=== PATIENT | female | born 1980 | race Caucasian/White ===

== ENCOUNTER → 2018-08-27 | Outpatient (CLI) | payer BC ==
--- NOTE | 2018-08-27 21:42 | Diagnostic Imaging Report ---
INDICATION: Palpable lump at the 2-3 o'clock location of the left breast. The patient denies having a palpable abnormality and said this was felt by the patient's physician. COMPARISON: No prior studies are available for comparison. EXAMINATION: 2D and 3D bilateral diagnostic mammography was performed with CAD. The current study was also evaluated with a Computer Aided Detection (CAD) system. FINDINGS: Both breasts are heterogeneously dense, limiting the sensitivity of mammography. No mass or malignant appearing microcalcifications are seen. Axillae are unremarkable. IMPRESSION: No mammographic features suspicious for malignancy are identified. Even so, sonographic interrogation in the 2-3 o'clock location of the left breast is recommended and will be performed today. ACR BI-RADS Category 0: Incomplete. (Needs additional imaging evaluation). Result letter will be mailed to the patient. Note: At least 10% of breast cancer is not imaged by mammography. Dictated by: Dictated on workstation # [id number]
--- NOTE | 2018-08-27 21:54 | Diagnostic Imaging Report ---
INDICATION: Lump felt by the patient's doctor at the 2-3 o'clock location of the left breast. COMPARISON: Diagnostic mammogram earlier the same day. EXAMINATION: Interrogation of the area of lump at the 2-3 o'clock location in the left breast was performed. FINDINGS: No sonographic abnormality is seen. No solid or cystic mass is detected. IMPRESSION: No sonographic abnormality is seen. Continued close clinical and self breast exam is recommended to confirm stability of the palpable abnormality. ACR BI-RADS Category 1: Negative. Result letter will be mailed to the patient. Note: At least 10% of breast cancer is not imaged by mammography. Dictated by: Dictated on workstation # [id number]
== END ==
LOC: RAD 13:07
PROVIDERS: ATTEND Nurse Practitioner Family
DX: N60.11 Diffuse cystic mastopathy of right breast (principal); N60.12 Diffuse cystic mastopathy of left breast
CPT/HCPCS: 76642; 77066

== ENCOUNTER → 2021-10-26 | Outpatient (CLI) | payer BC ==
--- NOTE | 2021-10-26 13:14 | Diagnostic Imaging Report ---
INDICATION: Routine screening. Comparison is made with prior mammogram of 08/27/2018. 2-D and 3-D bilateral screening mammography was performed with CAD. Both breasts are heterogeneously dense, limiting the sensitivity of mammography. The parenchymal pattern appears stable. No mass or malignant-appearing microcalcifications are seen. Axillae are unremarkable. IMPRESSION: No mammographic features suspicious for malignancy are identified. ACR BI-RADS Category 1: Negative. Result letter will be mailed to the patient. Note: At least 10% of breast cancer is not imaged by mammography. BI-RADS Category 1 Dictated by: Dictated on workstation # [id number]
== END ==
LOC: RAD 11:00
PROVIDERS: ATTEND Nurse Practitioner Family
DX: Z12.31 Encounter for screening mammogram for malignant neoplasm of breast (principal)
CPT/HCPCS: 77063; 77067

== ENCOUNTER → 2023-02-12 | Outpatient (CLI) | payer BC ==
--- NOTE | 2023-02-12 16:06 | Diagnostic Imaging Report ---
INDICATION: Routine screening. COMPARISON is made with prior mammograms 10/26/2021 and 08/27/2018. 2-D and 3-D bilateral screening mammography was performed with CAD. Both breasts are heterogeneously dense, limiting the sensitivity of mammography. The parenchymal pattern is stable. No mass or malignant-appearing microcalcifications are identified. Axillae are unremarkable. IMPRESSION: BI-RADS Category 1 No mammographic features suspicious for malignancy are identified. ACR BI-RADS Category 1: Negative. Result letter will be mailed to the patient. Note: At least 10% of breast cancer is not imaged by mammography. Dictated by: Dictated on workstation # [id number]
== END ==
LOC: RAD 12:43
PROVIDERS: ATTEND Nurse Practitioner Family
DX: Z12.31 Encounter for screening mammogram for malignant neoplasm of breast (principal)
CPT/HCPCS: 77063; 77067